=== PATIENT | female | born 1940 | race Caucasian/White ===

== ENCOUNTER 2017-07-10 21:32 | Emergency (ER) | payer MEDICARE, MEDICAID ==
[~2017-07-10] VITALS: Ht 154.9 cm; Wt 68.5 kg
[~2017-07-10 21:32] MED LIST: AMLO5TAB4 PO; ASPI-664 PO; ATOR40TA68 PO; FENO145T25 PO; LISI10TA2 PO; LORA0.5T PO; LYRI100 PO; METF-480 PO; SITA100T8 PO
[2017-07-10 21:35] VITALS: Ht 154.9 cm; Wt 68.5 kg
[2017-07-10] MEDS ORDERED: SODIUM CHLORIDE 0.9% 1L BAG IV* STA (22:32)
--- NOTE | 2017-07-10 22:46 | ERD ---
ER Documentation Chief Complaint Chief Complaint bib self, cc: nausea, vomiting, diarrhea x 3 days, HPI Patient is a 76-year-old female who presents with gradual onset, constant, moderate, diffuse abdominal pain for 3 days. She also reports having subjective fever and chills during this time. Today she experienced 3 episodes of nonbloody, nonbilious emesis as well as several episodes of watery yellow diarrhea without blood or mucus. She denies back pain, cough, chest pain, shortness of breath. She denies dysuria. She states that symptoms began right after she got her flu shot. ROS All systems reviewed and are negative except as per history of present illness. Medications Home Meds Active Scripts Acetaminophen* (Tylophen*) 500 Mg Capsule, 1 CAP PO Q6H Y for PAIN AND OR ELEVATED TEMP, #20 CAP Prov:BETH GONSALEZ MD 07/11/17 Ondansetron Hcl* (Zofran*) 4 Mg Tablet, 4 MG PO Q8H Y for NAUSEA AND/OR VOMITING , #15 TAB Prov:BETH GONSALEZ MD 07/11/17 Metronidazole* (Flagyl*) 500 Mg Tablet, 500 MG PO TID for 14 Days, TAB Prov:BETH GONSALEZ MD 07/11/17 Ciprofloxacin Hcl* (Ciprofloxacin Hcl*) 500 Mg Tablet, 500 MG PO BID for 14 Days , TAB Prov:BETH GONSALEZ MD 07/11/17 Aspirin* (Aspirin* EC) 81 Mg Tablet.dr, 81 MG PO DAILY, #30 1 Refill Prov:DEVON MILLER MD 02/21/16 Lisinopril* (Lisinopril*) 10 Mg Tablet, 10 MG PO DAILY, #30 TAB Prov:DEVON MILLER MD 02/21/16 Reported Medications Lorazepam* (Lorazepam*) 0.5 Mg Tablet, 0.5 MG PO HS Y for ANXIETY, TAB 02/20/16 Pregabalin* (Lyrica*) 100 Mg Capsule, 100 MG PO DAILY, CAP 02/20/16 Amlodipine Besylate* (Norvasc*) 5 Mg Tablet, 5 MG PO DAILY, TAB 02/20/16 Fenofibrate Nanocrystallized* (Tricor*) 145 Mg Tablet, 145 MG PO DAILY, TAB 02/20/16 Atorvastatin* (Atorvastatin*) 40 Mg Tablet, 40 MG PO QHS, #30 TAB 02/20/16 Sitagliptin* (Januvia*) 100 Mg Tablet, 100 MG PO DAILY, #30 TAB 02/20/16 Metformin* (Glucophage*) 850 Mg Tablet, 850 MG PO DAILY, #30 TAB 02/20/16 Allergies Allergies: Coded Allergies: Sulfa (Sulfonamide Antibiotics) (Verified Allergy, Severe, 02/20/16) hydrochlorothiazide (Verified Allergy, Severe, 02/20/16) hydrocodone (Verified Allergy, Severe, 02/21/16) pt claimed not allergic to acetamenophen PMhx/Soc Past medical history: Diabetes mellitus, hypertension, CVA, Peptic ulcer disease Past surgical history: Cholecystectomy, mastectomy Social history: Denies tobacco or alcohol History of Surgery: Yes (cholecystectomy, R shoulder sx, R knee sx, ) Anesthesia Reaction: No Hx Neurological Disorder: No Hx Respiratory Disorders: No Hx Cardiac Disorders: Yes (htn, ) Hx Psychiatric Problems: No Hx Miscellaneous Medical Probl: Yes (htn, dyslipidemia, neuropathy, colon polyp ) Hx Alcohol Use: No Hx Substance Use: No Hx Tobacco Use: No FmHx Family History: diabetes, No coronary disease Physical Exam Vitals Vital Signs Date Time Temp Pulse Resp B/P Pulse Ox O2 Delivery O2 Flow Rate FiO2 07/11/17 03:54 99.6 85 16 108/66 97 Room Air 07/11/17 02:34 99.6 85 20 127/59 97 Room Air 07/10/17 23:17 100 16 97 07/10/17 21:35 100.2 122 18 161/77 97 Physical Exam Const: Alert, no acute distress Head: Atraumatic Eyes: Normal Conjunctiva, No pallor, no icterus ENT: Normal External Ears, Nose and Mouth. Mucous membranes moist Neck: Full range of motion..~ No meningismus. Resp: Clear to auscultation bilaterally except for trace left basilar rales Cardio: Tachycardia, regularrhythm, no murmurs Abd: Soft, Mild diffuse tenderness, non distended. No rebound or guarding. Skin: No petechiae or rashes Back: No midline or flank tenderness Ext: No cyanosis, or edema Neur: Awake and alert, Right-sided facial droop is chronic, moves and feels 4 extremity's appropriately. Psych: Normal Mood and Affect Result Diagram: 10/21/17 2310 10/21/17 2310 Results 24 hrs Laboratory Tests Test 07/10/17 23:10 White Blood Count 9.710^3/ul Red Blood Count 5.0610^6/ul Hemoglobin 14.9g/dl Hematocrit 44.7% Mean Corpuscular Volume 88.3fl Mean Corpuscular Hemoglobin 29.4pg Mean Corpuscular Hemoglobin Concent 33.3g/dl Red Cell Distribution Width 12.8% Platelet Count 18012^3/UL Mean Platelet Volume 11.9fl Neutrophils % 72.9% Lymphocytes % 13.5% Monocytes % 11.9% Eosinophils % 0.8% Basophils % 0.8% Nucleated Red Blood Cells % 0.0/100WBC Neutrophils # 7.110^3/ul Lymphocytes # 1.310^3/ul Monocytes # 1.210^3/ul Eosinophils # 0.110^3/ul Basophils # 0.110^3/ul Nucleated Red Blood Cells # 0.010^3/ul Prothrombin Time 12.6Sec Prothrombin Time Ratio 1.0 INR International Normalized Ratio 0.94 Activated Partial Thromboplast Time 28.1Sec Urine Color YELLOW Urine Clarity CLEAR Urine pH 9.0 Urine Specific [place] 1.015 Urine Ketones NEGATIVEmg/dL Urine Nitrite NEGATIVEmg/dL Urine Bilirubin NEGATIVEmg/dL Urine Urobilinogen NEGATIVEmg/dL Urine Leukocyte Esterase NEGATIVELeu/ul Urine Microscopic RBC 0/HPF Urine Microscopic WBC 4/HPF Urine Amorphous Crystals FEW/HPF Urine Hemoglobin NEGATIVEmg/dL Urine Glucose NEGATIVEmg/dL Urine Total Protein 2+mg/dl Sodium Level 141mmol/L Potassium Level 3.6mmol/L Chloride Level 103mmol/L Carbon Dioxide Level 27mmol/L Anion Gap 15 Blood Urea Nitrogen 14mg/dl Creatinine 0.70mg/dl Glucose Level 136mg/dl Lactic Acid Level 1.5mmol/L Calcium Level 10.3mg/dl Total Bilirubin 0.3mg/dl Direct Bilirubin 0.00mg/dl Indirect Bilirubin 0.3mg/dl Aspartate Amino Transf (AST/SGOT) 44IU/L Alanine Aminotransferase (ALT/SGPT) 64IU/L Alkaline Phosphatase 58IU/L Troponin I < 0.012ng/ml Total Protein 8.9g/dl Albumin 4.8g/dl Globulin 4.10g/dl Albumin/Globulin Ratio 1.17 Lipase 42U/L Current Medications Medications (Trade) Dose Ordered Sig/Jessi Route PRN Reason Start Time Stop Time Status Last Admin Dose Admin Sodium Chloride (NS) 2,120 ml BOLUS OVER 2 HOURS STAT IV* 07/10/17 22:32 07/10/17 22:34 DC 07/10/17 23:05 IV Flush 10 ml 10 ml STK-MED ONCE .ROUTE 07/11/17 00:21 07/11/17 00:22 DC 07/11/17 00:33 Sodium Chloride (NS) 100 ml @ ud STK-MED ONCE .ROUTE 07/11/17 00:21 07/11/17 00:22 DC 07/11/17 00:33 Iohexol (Omnipaque 300mg/ ml) 150 ml STK-MED ONCE .ROUTE 07/11/17 00:22 07/11/17 00:23 DC 07/11/17 00:33 Levofloxacin 500 mg 500 mg ONCE ONCE PO 07/11/17 02:30 07/11/17 02:33 DC 07/11/17 03:04 Metronidazole (Flagyl 500 Mg (Pmx)) 100 ml @ 100 mls/hr ONCE ONCE IVPB 07/11/17 02:30 07/11/17 03:29 DC 07/11/17 03:04 Procedures/MDM EKG read by me: Time 2306, rate 102 Rhythm: Sinus tachycardia [place]: Normal Intervals: Normal ST-T waves: no ischemic changes Ectopy: No Q-waves: No Impression: No evidence of ischemia or arrhythmia MDM: Patient is a 76-year-old female who presents with 3 days of abdominal pain and several episodes of vomiting. She has tenderness on exam and CT demonstrates diverticulitis. There is no evidence of perforation or abscess and she has a nonsurgical abdomen. She does not have a significant white blood cell count and no electrolyte abnormalities. She was given an initial dose of IV antibiotics and fluids in the ER, and will be discharged with a 14 day course of Cipro and Flagyl. She will also be given analgesics and antiemetics. On reassessment, the patient stated that she felt better and had a benign abdominal exam. I believe she is stable and appropriate for outpatient treatment. She was counseled on return precautions. She was also counseled to hold metformin for 48 hours. Departure Diagnosis: Primary Impression: Diverticulitis Diverticulitis site: large intestine Diverticulitis bleeding: without bleeding Diverticulitis complication: without perforation or abscess Qualified Code: K57.32 - Diverticulitis of large intestine without perforation or abscess without bleeding Condition: BETH Alaniz MD Jul 10, 2017 22:46
[2017-07-10 23:33] LABS: BASOPHIL # 0.1 10^3/ul (0.0-0.1); BASOPHILS % 0.8 % (0.0-2.0); EOSINOPHILS # 0.1 10^3/ul (0.0-0.5); EOSINOPHILS % 0.8 % (0.0-7.0); HEMATOCRIT 44.7 % (37.0-47.0); HEMOGLOBIN 14.9 g/dl (12.0-16.0); LYMPHOCYTES # 1.3 10^3/ul (0.8-2.9); LYMPHOCYTES % 13.5 % (15.0-51.0); MEAN CORPUSCULAR HEMOGLOBIN 29.4 pg (29.0-33.0); MEAN CORPUSCULAR HGB CONC 33.3 g/dl (32.0-37.0); MEAN CORPUSCULAR VOLUME 88.3 fl (82.0-101.0); MEAN PLATELET VOLUME 11.9 fl (7.4-10.4); MONOCYTE # 1.2 10^3/ul (0.3-0.9); MONOCYTES % 11.9 % (0.0-11.0); NEUTROPHIL # 7.1 10^3/ul (1.6-7.5); NEUTROPHILS % 72.9 % (39.0-77.0); PLATELET COUNT 223 10^3/UL (140-415); RED BLOOD COUNT 5.06 10^6/ul (4.20-5.40); RED CELL DISTRIBUTION WIDTH 12.8 % (11.5-14.5); WHITE BLOOD COUNT 9.7 10^3/ul (4.8-10.8)
[2017-07-10 23:48] LABS: INR 0.94; PARTIAL THROMBOPLASTIN TIME 28.1 Sec (25.0-35.0); PROTIME 12.6 Sec (12.2-14.2)
[2017-07-10 23:50] LABS: ADD UMIC YES; UR AMORPHOUS CRYSTAL FEW /HPF (NONE SEEN); UR ASCORBIC ACID NEGATIVE (NEGATIVE); UR BILIRUBIN (Dip) NEGATIVE (NEGATIVE); UR BLOOD (Dip) NEGATIVE (NEGATIVE); UR CLARITY CLEAR (CLEAR); UR COLOR YELLOW (YELLOW); UR GLUCOSE (Dip) NEGATIVE (NEGATIVE); UR KETONES (Dip) NEGATIVE (NEGATIVE); UR LEUKOCYTE ESTERASE (Dip) NEGATIVE Leu/ul (NEGATIVE); UR NITRITE (Dip) NEGATIVE (NEGATIVE); UR RBC 0 /HPF (0-5); UR SPECIFIC GRAVITY (Dip) 1.015 (1.003-1.030); UR TOTAL PROTEIN (Dip) 2+ mg/dl (NEGATIVE); UR UROBILINOGEN (Dip) NEGATIVE (NEGATIVE)
[2017-07-10 23:51] LABS: ALANINE AMINOTRANSFERASE 64 IU/L (13-69); ALBUMIN 4.8 g/dl (3.3-4.9); ALBUMIN/GLOBULIN RATIO 1.17; ALKALINE PHOSPHATASE 58 IU/L (42-121); ANION GAP 15 (8-16); ASPARTATE AMINO TRANSFERASE 44 IU/L (15-46); BILIRUBIN,INDIRECT 0.3 mg/dl (0-1.1); BILIRUBIN,TOTAL 0.3 mg/dl (0.2-1.3); BLOOD UREA NITROGEN 14 mg/dl (7-20); CALCIUM 10.3 mg/dl (8.4-10.2); CARBON DIOXIDE 27 mmol/L (21-31); CHLORIDE 103 mmol/L (97-110); GLUCOSE 136 mg/dl (70-220); POTASSIUM 3.6 mmol/L (3.5-5.1); SODIUM 141 mmol/L (135-144); TOTAL PROTEIN 8.9 g/dl (6.1-8.1)
[2017-07-11 00:13] LABS: TROPONIN-I < 0.012 ng/ml (0.00-0.12)
[2017-07-11] MEDS ORDERED: SOD CHLORIDE 0.9% 100 ML ONE (00:21)
[2017-07-11] MEDS ORDERED: IOHEXOL 300MG/ML 150 ML BTL ONE (00:22)
--- NOTE | 2017-07-11 00:24 | RADRPT ---
PROCEDURE: XR Chest. CLINICAL INDICATION: Sepsis. TECHNIQUE: Single frontal chest x-ray. COMPARISON: 02/20/2016 FINDINGS: The cardiomediastinal silhouette is unremarkable. There are atherosclerotic calcifications of the ao rtic knob. Pulmonary vessels are top normal in caliber.. No focal infiltrate is seen. There is no p leural effusion. There is no pneumothorax. The osseous structures are unremarkable. IMPRESSION: Pulmonary vessels top normal in caliber. No definite focal infiltrate. RPTAT: HMVK .Edwin Mena MD, Date Time Electronically viewed and signed by .Edwin Mena MD, on 07/11/2017 00:24 .K/
--- NOTE | 2017-07-11 01:32 | RADRPT ---
PROCEDURE: CT Abdomen and Pelvis with contrast. CLINICAL INDICATION: Sepsis. TECHNIQUE: A CT scan of the abdomen and pelvis was performed with intravenous contrast. The patie nt was scanned following the uncomplicated intravenous administration of 100 cc of Isovue 300. Tanika nal and sagittal reformatted images were obtained from the axial source images. Images were reviewed on a high-resolution PACS workstation. CTDIvol: 11.81 mGy. DLP: 679.66 mGy-cm. One or more of the following dose reduction techniques were used: - Automated exposure control. - Adjustment of the mA and/or kV according to patient size. - Use of iterative reconstruction technique. COMPARISON: None. FINDINGS: There are mild atelectatic changes in the lower lobes. The liver is enlarged (21.6 cm) and diffusely hypodense, consistent with fatty infiltration. The pa tient is status post cholecystectomy. The common bile duct is not dilated. The spleen is not enlarg ed. No pancreatic lesion is identified and there is no pancreatic ductal dilatation. The adrenal gla nds are unremarkable. The kidneys are normal in size. There is no perinephric fat stranding. No hydronephrosis is seen. The small and large bowel are normal in caliber. There is moderate descending and sigmoid colon dive rticulosis. There is wall thickening and pericolonic inflammation along the proximal sigmoid colon, consistent with diverticulitis. No associated pericolonic fluid collection or pneumoperitoneum is i dentified. The appendix is normal. The urinary bladder is unremarkable. The patient is status post hysterectomy. No adnexal mass is se en. No lymphadenopathy is identified. There is no ascites. There are mild to moderate arterial calcifica tions. No suspicious osseous lesion is idenitified. IMPRESSION: 1. Diverticulitis along the proximal sigmoid colon. No pneumoperitoneum or abscess is identified. 2. Moderate descending sigmoid colon diverticulosis. 3. Normal appendix. 4. Hepatomegaly and fatty infiltration of the liver. 5. Status post hysterectomy. 6. Mild to moderate atherosclerotic arterial calcifications. RPTAT: HTAR .Dewey Padilla MD, MD Date Time Electronically viewed and signed by .Dewey Padilla MD, on 07/11/2017 01:32 .[place]/
[2017-07-11] MEDS ORDERED: metroNIDAZOLE 500 MG/NS (PMX) 100 ML IVPB ONE (02:30)
[2017-07-11] MEDS ORDERED: LEVOFLOXACIN 500 MG TAB PO ONE (02:30)
[2017-07-11] MEDS ORDERED: ONDA4TAB8 PO (03:39)
[2017-07-11] MEDS ORDERED: METR500T PO (03:39)
[2017-07-11] MEDS ORDERED: CIPR500T4 PO (03:39)
[2017-07-11] MEDS ORDERED: ACET500C5 PO (03:39)
[2017-07-11 03:54] VITALS: BP 108/66; PULSE 85; RESP 16; TEMP 99.6
== END 2017-07-11 03:54 | disposition home or self-care (01) ==
LOC: E/R 21:32
DX: K57.32 Diverticulitis of large intestine without perforation or abscess without bleeding (principal); E11.9 Type 2 diabetes mellitus without complications; I10 Essential (primary) hypertension; R07.9 Chest pain, unspecified; Z79.84 Long term (current) use of oral hypoglycemic drugs; Z79.82 Long term (current) use of aspirin
CPT/HCPCS: 36415; 71010; 74177; 80053; 81001; 83605; 83690; 84484; 85025; 85610; 85730; 87040; 87086; 93005; 96374; 99285; J7030; Q9967